=== PATIENT | male | born 1970 | race Caucasian/White ===

== ENCOUNTER 2022-06-16 14:22 | Day surgery (SDC) | payer MEDICAID ==
[2022-06-16] MEDS ORDERED: HYDROmorphone 1 MG/ML Syringe IM ONE (15:27)
[2022-06-16] MEDS ORDERED: Sodium Chloride 0.9% 10 ML Syringe FLUSH PRN (16:46)
[2022-06-16] MEDS ORDERED: fentaNYL 250 MCG/5 ML SDV ONE ×2 (17:40→18:06)
[2022-06-16] MEDS ORDERED: Propofol 200 MG/20 ML SDV ONE (17:41)
[2022-06-16] MEDS ORDERED: Rocuronium 50 MG/5 ML Vial ONE (17:41)
[2022-06-16] MEDS ORDERED: Dexamethasone 4 MG/ML SDV ONE (17:41)
[2022-06-16] MEDS ORDERED: Glycopyrrolate 0.2 MG/ML 5 ML MDV ONE (17:41)
[2022-06-16] MEDS ORDERED: Neostigmine Methylsulfate 1 MG/ML 5 ML Syringe ONE (17:41)
[2022-06-16] MEDS ORDERED: Ondansetron 4 MG/2 ML SDV ONE (17:41)
[2022-06-16] MEDS ORDERED: Sodium Chloride 0.9% 500 ML ONE ×3 (18:03→19:50)
[2022-06-16] MEDS ORDERED: Sodium Chloride 0.9% 10 ML ONE ×2 (18:04→20:11)
[2022-06-16] MEDS ORDERED: ceFAZolin 1 GM Vial ONE (18:04)
[2022-06-16] MEDS ORDERED: Bupivacaine 0.5% 50 ML MDV INJECT ONE (18:40)
[2022-06-16] MEDS ORDERED: Phenylephrine 1% 10 MG/ML SDV ONE (20:11)
[2022-06-16] MEDS ORDERED: Morphine 2 MG/ML SYRINGE ONE (22:30)
[2022-06-16] MEDS ORDERED: traMADol 50 MG Tab PO PRN (22:40)
[2022-06-16] MEDS ORDERED: oxyCODONE 5 MG Tab PO PRN ×2 (22:41→22:44)
[2022-06-16] MEDS ORDERED: Morphine 2 MG/ML SYRINGE IV PRN (22:45)
[2022-06-16] MEDS ORDERED: Sodium Chloride 0.45% 1,000 ML IV SCH (22:45)
[2022-06-16] MEDS ORDERED: Ondansetron 4 MG Tab.DIS PO PRN (22:47)
[2022-06-16] MEDS ORDERED: Morphine 2 MG/ML SYRINGE IVPUSH ONE (22:55)
[2022-06-17] MEDS: HYDROmorphone 2 MG Tab PO PRN ×3 (00:05→07:58)
[2022-06-17] MEDS: Acetaminophen 325 MG Tab PO SCH ×3 (00:05→10:31)
[2022-06-17] MEDS ORDERED: ceFAZolin 1 GM Vial ONE (01:45)
[2022-06-17] MEDS ORDERED: Sodium Chloride 0.9% 50 ML ONE (01:45)
[2022-06-17] MEDS: ceFAZolin 1 GM in Premix Bag 1 BAG IV SCH ×2 (02:03→10:30)
[2022-06-17 06:31] LABS: ESTIMATED GFR 57 mL/min (>60)
[2022-06-17 07:57] VITALS: BP 131/85; PULSE 105
[2022-06-17] MEDS ORDERED: metFORMIN 500 MG Tab PO SCH (08:00)
== END 2022-06-17 11:45 | disposition home or self-care (01) ==
LOC: JP.ED 14:22 → JP.SDS 17:15 → JP.MS 22:21 → JP.SDS 06-17 11:45
PROVIDERS: ATTEND Specialist
DX: S52.352A Displaced comminuted fracture of shaft of radius, left arm, initial encounter for closed fracture (principal); S52.252A Displaced comminuted fracture of shaft of ulna, left arm, initial encounter for closed fracture; F17.210 Nicotine dependence, cigarettes, uncomplicated; I10 Essential (primary) hypertension; E11.9 Type 2 diabetes mellitus without complications; E66.9 Obesity, unspecified; Z68.34 Body mass index [BMI] 34.0-34.9, adult; Z98.890 Other specified postprocedural states; Z79.899 Other long term (current) drug therapy; Z79.84 Long term (current) use of oral hypoglycemic drugs; Z79.82 Long term (current) use of aspirin; Z88.5 Allergy status to narcotic agent
CPT/HCPCS: 36415; 73060-26-LT; 73060-LT; 73090-26-LT; 73090-LT; 76000; 80048; 80053; 82947; 85025; 85027; 96372; 99284; A9270-GY; C1713; C1776; J0690; J1100; J1170; J2270; J2370; J2405; J2704; J2710; J3010; J3490; J7040

== ENCOUNTER → 2022-06-24 | Day surgery (SDC) | payer MEDICAID ==
[~2022-06-24] MED LIST: Bupivacaine 0.5% 30 ML SDV ONE; Dexamethasone 4 MG/ML SDV ONE; Glycopyrrolate 0.2 MG/ML 5 ML MDV ONE; Lactated Ringers 1,000 ML IV SCH; Neostigmine Methylsulfate 1 MG/ML 5 ML Syringe ONE; Nozin Nasal Sanitizer NASBOTH ONE; Ondansetron 4 MG/2 ML SDV ONE; Propofol 200 MG/20 ML SDV ONE; Rocuronium 50 MG/5 ML Vial ONE; Succinylcholine 200 MG/10 ML MDV ONE; ceFAZolin 2 GM in Sodium Chloride 0.9% 50 ML IV ONE; fentaNYL 250 MCG/5 ML SDV ONE
[2022-06-24 09:20] LABS: ESTIMATED GFR 67 mL/min (>60)
[2022-06-24 11:31] VITALS: BP 117/78; PULSE 73
== END ==
LOC: JP.SDS 08:45
PROVIDERS: ATTEND Specialist
DX: S51.801A Unspecified open wound of right forearm, initial encounter (principal); I10 Essential (primary) hypertension; F17.200 Nicotine dependence, unspecified, uncomplicated; E11.9 Type 2 diabetes mellitus without complications; E66.9 Obesity, unspecified; K21.9 Gastro-esophageal reflux disease without esophagitis; M10.9 Gout, unspecified; E78.5 Hyperlipidemia, unspecified; Z79.899 Other long term (current) drug therapy; Z88.5 Allergy status to narcotic agent; X58.XXXA Exposure to other specified factors, initial encounter
CPT/HCPCS: 13160; 36415; 80048; 85027; A9270; J0330; J0690; J1100; J2405; J2704; J3010; J3490; J7120; J2710

== ENCOUNTER → 2023-08-18 | Day surgery (SDC) | payer MEDICAID ==
[~2023-08-18] MED LIST changes: +Acetaminophen/HYDROcodone 325-5 MG Tab PO PRN; +Acetaminophen/oxyCODONE 325-5 MG Tab PO PRN; +Lactated Ringers 1,000 ML ONE; -Neostigmine Methylsulfate 1 MG/ML 5 ML Syringe ONE; +Neostigmine Methylsulfate 10 MG/10 ML MDV ONE; -Succinylcholine 200 MG/10 ML MDV ONE; +ceFAZolin 2 GM in Premix Bag 1 BAG IV ONE; +fentaNYL 100 MCG/2 ML SDV ONE
[2023-08-18 06:33] LABS: HEMATOCRIT 41.2 % (38.4-49.7); HEMOGLOBIN 14.5 g/dL (12.9-16.9); MEAN CORPUSCULAR HEMOGLOBIN 31.6 pg (31.6-35.5); MEAN CORPUSCULAR HGB CONC 35.2 g/dL (31.6-35.5); MEAN CORPUSCULAR VOLUME 89.8 fL (81.4-99.0); RED BLOOD CELL COUNT 4.59 M/uL (4.14-5.76); WHITE BLOOD CELL COUNT,WBC 7.7 K/uL (3.2-11.0)
[2023-08-18 06:49] LABS: ANION GAP 16.3 mmol/L (5.0-14.0); CALCIUM 8.3 mg/dL (8.5-10.1); CREATININE 1.3 mg/dL (0.8-1.3); EST CRCL DRUG DOSING (CG) 65.04 mL/min; POTASSIUM,K 4.3 mmol/L (3.6-5.2)
[2023-08-18 12:31] VITALS: BP 145/91; PULSE 82
== END ==
LOC: JP.SDS 05:52
PROVIDERS: ATTEND Specialist
DX: S52.002 Unspecified fracture of upper end of left ulna (principal); I10 Essential (primary) hypertension; E78.5 Hyperlipidemia, unspecified
CPT/HCPCS: 20680; 25405; 36415; 76000; 80048; 85027; A9270; C1713; C1776; J0690; J1100; J2405; J2704; J2710; J3010; J3490; J7120

== ENCOUNTER 2024-01-06 20:56 | Emergency (ER) | payer MEDICAID ==
[2024-01-06 21:02] VITALS: BP 163/92; PULSE 106
[2024-01-06] MEDS: Bacitracin Oint 1 GM U/D Packet TOP ONE (22:35)
[2024-01-06] MEDS: Lidocaine 1% 5 ML VIAL INJECT ONE (22:35)
== END 2024-01-06 23:27 | disposition home or self-care (01) ==
LOC: JP.ED 20:56
DX: S61.211A Laceration without foreign body of left index finger without damage to nail, initial encounter (principal); I10 Essential (primary) hypertension; E78.00 Pure hypercholesterolemia, unspecified; E11.9 Type 2 diabetes mellitus without complications; E66.9 Obesity, unspecified; F17.210 Nicotine dependence, cigarettes, uncomplicated; Z86.16 Personal history of COVID-19; Z79.82 Long term (current) use of aspirin; Z79.899 Other long term (current) drug therapy; Z79.84 Long term (current) use of oral hypoglycemic drugs; Z88.6 Allergy status to analgesic agent; W29.0XXA Contact with powered kitchen appliance, initial encounter
CPT/HCPCS: 12001; 73130-26-LT; 73130-LT; 99283